=== PATIENT | female | born 1980 | race Caucasian/White ===

== ENCOUNTER 2019-05-18 15:26 | Inpatient (IN) | payer MEDICAID ==
[~2019-05-18] VITALS: Ht 154.9 cm; Wt 85.7 kg
[2019-05-18 15:46] VITALS: BP 121/73; PULSE 92; RESP 20
[2019-05-18 15:50] VITALS: Ht 154.9 cm; Wt 85.7 kg
[2019-05-18] MEDS ORDERED: LACTATED RINGER'S 1,000 ML IV PRN (15:51)
[2019-05-18] MEDS ORDERED: PREN1TAB13 PO (15:51)
[2019-05-18] MEDS ORDERED: FER325 PO (15:52)
[2019-05-18] MEDS ORDERED: CALC-143 PO (15:52)
[2019-05-18] MEDS ORDERED: OXYCODONE/ASPIRIN (4.88/325) TAB PO PRN (16:00)
[2019-05-18] MEDS ORDERED: MISOPROSTOL 200 MCG TAB PR PRN (16:00)
[2019-05-18] MEDS ORDERED: METHYLERGONOVINE 0.2 MG INJ IM PRN (16:00)
[2019-05-18] MEDS ORDERED: CARBOPROST 250 MCG INJ IM PRN (16:00)
[2019-05-18] MEDS ORDERED: LIDOCAINE 1% (MPF) 30 ML INJ INJ PRN (16:00)
[2019-05-18] MEDS ORDERED: BUTORPHANOL 2 MG INJ IV PRN (16:00)
[2019-05-18] MEDS ORDERED: OXYTOCIN 30 UNITS/LR 500 ML IV PRN (16:00)
[2019-05-18] MEDS ORDERED: OXYTOCIN 30 UNITS/LR 500 ML IV SCH ×3 (16:00→17:30)
[2019-05-18] MEDS ORDERED: IBUPROFEN 600 MG TAB PO PRN (16:00)
[2019-05-18] MEDS: LACTATED RINGER'S 1,000 ML IV SCH ×2 (16:40→20:12)
[2019-05-18] MEDS: ACCU-CHEK XX SCH (21:35)
--- NOTE | 2019-05-18 21:35 | PREAC ---
Date/Time of Note Date/Time of Note DATE: 05/18/19 TIME: 21:35 Anesthesia Eval and Record Evaluation Time Pre-Procedure Interview DATE: 05/18/19 TIME: 21:35 Age 39 Sex female NPO: 8 hrs Preoperative diagnosis labor pain Planned procedure epidural Past Medical History Past Medical History: Includes : Gestational age: (38.6), Gestational diabetes Surgery & Anesthesia Issues No known issue Meds Anticoagulation: No Beta Ofe within 24 hr: No Reason Beta Ofe not given: Pt. not on B-Ofe Reported Medications Calcium Citrate/Vitamin D (Citracal-Vitamin D 200 MG-250) 1 Each Tablet, 1 EACH PO DAILY, TAB 05/18/19 Ferrous Sulfate* (Ferrous Sulfate*) 325 Mg Tabec, 325 MG PO DAILY, TAB 05/18/19 Pnv95/Ferrous Fumarate/FA ( Vitamins Tablet) 1 Each Tablet, 1 EACH PO D AILY, TAB 05/18/19 Current Medications Lactated Ringer's 1,000 ml @ 125 mls/hr Q8H IV Last administered on 05/18/19at 20:12; Admin Dose 125 MLS/HR; Start 05/18/19 at 15:51 Butorphanol Tartrate (Stadol) 2 mg Q2H PRN IV .PAIN SCALE 6-10; Start 05/18/19 at 16:00 Lidocaine (Xylocaine 1% (Mpf)) 30 ml ONCE PRN INJ .EPISIOTOMY; Start 05/18/19 at 16:00 Oxytocin/Lactated Ringer's 500 ml @ 500 mls/hr ONCE POST IV ; Start 05/18/19 at 16:00 Oxytocin/Lactated Ringer's 500 ml @ 125 mls/hr POST IV ; Start 05/18/19 at 16:00 Ibuprofen (Motrin) 600 mg ONCE PRN PO .PAIN 1-5; Start 05/18/19 at 16:00 Oxycodone/Aspirin (Percodan) 2 tab ONCE PRN PO .PAIN 6-10; Start 05/18/19 at 16:00 Lactated Ringer's 1,000 ml @ 2,000 mls/hr Q30M PRN IV .ANESTHESIA; Start 05/18/19 at 15:51 Oxytocin/Lactated Ringer's 500 ml @ 0 mls/hr ONCE PRN IV .VAGINAL BLEEDING; Start 05/18/19 at 16:00 Methylergonovine Maleate (Methergine) 0.2 mg ONCE PRN IM .VAGINAL BLEEDING; Start 05/18/19 at 16:00 Carboprost Tromethamine (Hemabate) 250 mcg ONCE PRN IM .VAGINAL BLEEDING; Start 05/18/19 at 16:00 Misoprostol (Cytotec) 1,000 mcg ONCE PRN AL .VAGINAL BLEEDING; Start 05/18/19 at 16:00 Oxytocin/Lactated Ringer's 500 ml @ 0 mls/hr FOR INDUCTION IV Last administered on 05/18/19at 20:19; Admin Dose 1 MLS/HR; Start 05/18/19 at 17:30 Diagnostic Test (Pha) (Accu-Chek) 1 ea Q4 XX ; Start 05/18/19 at 21:00 Meds reviewed: Yes Allergies Coded Allergies: No Known Allergy (Unverified , 05/18/19) Allergies Reviewed: Yes Labs/Studies Labs Reviewed: Reviewed by anesthesiologist Result Diagram: 05/18/19 1630 05/18/19 1630 Laboratory Tests 05/18/19 16:30 Blood Bank Test 05/18/19 16:30 Antibody Screen NEGATIVE Blood Type A POSITIVE Rh Immune Globulin Candidate NO test: Positive Studies: ECG (n/a), CXR (n/a) Pre-procedure Exam Last vitals Vital Signs Date Temp Pulse Resp B/P (MAP) Pulse Ox O2 O2 Flow FiO2 Time Delivery Rate 05/18/19 97.8 92 20 121/73 Room Air 15:46 (89) Airway: Adequate mouth opening Mallampati: Mallampati I Teeth: Normal Lung: Normal Heart: Normal ASA Physical Status ASA physical status: 2 Emergency: None Planned Anesthetic Neuraxial: Epidural Pre-operative Attestations Prior to commencing anesthesia and surgery, the patient was re-evaluated, there was verification of: *The patient's identity *The results of appropriate recent lab work and preoperative vital signs *The above evaluation not changing prior to induction *Anesthetic plan, risk benefits, alternative and complications discussed with patient/family; questions answered; patient/family understands, accepts and wishes to proceed. JENNIFER TATUM MD May 18, 2019 21:35
[2019-05-18] MEDS ORDERED: NALOXONE (0.4 MG/ML) INJ IV PRN (22:00)
[2019-05-18] MEDS ORDERED: ONDANSETRON 4 MG INJ IV PRN (22:00)
[2019-05-18] MEDS ORDERED: FENTAnyl 2MCG/ML-ROPIV 0.2% 100 ML BAG EPI SCH (22:00)
[2019-05-18] MEDS ORDERED: DIPHENHYDRAMINE 50 MG INJ IV PRN (22:00)
[2019-05-19] MEDS: ACCU-CHEK XX SCH ×2 (01:00→05:00)
[2019-05-19] MEDS: LACTATED RINGER'S 1,000 ML IV SCH (03:32)
[2019-05-19] MEDS ORDERED: LIDOCAINE 2% (SDV) 5 ML INJ ONE (04:02)
--- NOTE | 2019-05-19 04:44 | HP ---
Date/Time of Note Date/Time of Note DATE: 05/19/19 TIME: 04:41 OB - History Hx of Present Free Text/Dictation 39-year-old 6 para 3 at 39 weeks of gestation with estimated date of delivery May 26, 2019 Patient presents in active labor with regular contractions She reports positive movement, denies vaginal bleeding or leaking fluid GBS status is negative Estimated Due Date: May 26, 2019 : 6 Para: 3 Care: Good Care Past Family/Social History * Past Medical, Surgical, Family and Obstetric Histories reviewed from chart. OB Admission Exam Vital Signs Vital Signs Vital Signs Date Temp Pulse Resp B/P (MAP) Pulse Ox O2 O2 Flow FiO2 Time Delivery Rate 05/18/19 97.8 92 20 121/73 Room Air 15:46 (89) Physical Exam HEENT: WNL Heart: Rhythm Normal Lungs: Clear, Equal Abdomen: WNL Extremities: Normal Reflexes: Normal Cervical Dilatation: 3cm Effacement: 75% Station: -1 Membranes: Intact Heart Rate: 140's Accelerations: Accelerations Present Decelerations: No Decelerations Varibility: Moderate Contractions on Admission: < 5 Minutes Apart Intensity: Moderate Last 72 hourBlood Glucose Bedside Glucose - 72 Hours Test 05/18/19 21:11 05/19/19 01:08 Bedside Glucose 88 mg/dL (70-220) 92 mg/dL (70-220) Last 72 hours Lab Results CBC & BMP 05/18/19 16:30 PROCEDURE: US OB CLINICAL INDICATION: . Induction of labor. TECHNIQUE: Multiple transabdominal sonographic images of the pelvis and gravid uterus were obtained. The images were reviewed on a PACS workstation. COMPARISON: No prior studies are available for comparison. FINDINGS: Cervix: Not well visualized. Gestation: Single intrauterine gestation. Cardiac activity: 134 bpm. Presentation: Cephalic Placenta: Location: Anterior fundal Appearance: No previa or abruption. Amniotic Fluid: Not evaluated Measurements: BPD = 9.36 cm, 38 weeks 1 day HC = 33.28 cm, 38 weeks 0 days AC = 34.44 cm, 38 weeks 2 days FL = 7.45 cm, 38 weeks 1 day Gestational Age: AUA estimated gestational age: 38 weeks 1 day LMP estimated gestational age: 38 weeks 6 days AUA estimated date of delivery: 05/31/2019 EFW = 3430 g, 52% based on LMP. Structures: Not evaluated. IMPRESSION: 1. Single live intrauterine gestation of 38 weeks 1 day by ultrasound criteria. RPTAT: DD .Noel Rogers MD, Date Time Electronically viewed and signed by .Nole Rogers MD, MD on 05/18/2019 16:57 .R/ CC: MAMADOU PULIDO MD [phone] OB Assessment/Plan Reason for admission: active labor Plan: Expectant Management Other plan: Admit to labor and delivery Pain meds as needed Copies To: CC: MAMADOU PULIDO MD ; JACQUES OBANDO MD May 19, 2019 04:44
[2019-05-19] MEDS ORDERED: OXYTOCIN 30 UNITS/LR 500 ML IV SCH (04:46)
[2019-05-19] MEDS ORDERED: LACTATED RINGER'S 1,000 ML IV* SCH (04:46)
--- NOTE | 2019-05-19 04:46 | LDN ---
Date/Time of Note Date/Time of Note DATE: 05/19/19 TIME: 04:44 Delivery Summary Weeks of Gestation Term gestation Placenta Delivered: Spontaneously Meconium: none Episiotomy: No Anesthesia type: Epidural Estimated blood loss: 200 Sponge & Needle done & correct: Yes All needle counts correct: Yes Any foreign bodies felt in the: No Infant Delivery Information Sex Sex: male Apgars 1 Minute: 8 5 Minute: 9 Suctioning Nose & mouth suctioned at cornelius: Yes Delee suction performed: No Umbilical Cord Umbilical cord with: 3 Vessels Cord presentations: no nuchal cord Cord Blood was obtained: Yes Mother & Baby Disposition Disposition Baby's weight 6 pounds 7 ounces/ 2920 g Mom & Baby to Maternity; Good: Yes Baby to NICU: No Copies To: CC: MAMADOU PULIDO MD ; JACQUES OBANDO MD May 19, 2019 04:46
[2019-05-19] MEDS ORDERED: DIBUCAINE 1% 30 GM OINT TOP PRN (05:00)
[2019-05-19] MEDS ORDERED: BENZOCAINE 20% 56 ML SPRAY TOP PRN (05:00)
[2019-05-19] MEDS ORDERED: ACETAMINOPHEN 325 MG TAB PO PRN ×2 (05:00)
[2019-05-19] MEDS ORDERED: MISOPROSTOL 200 MCG TAB PR PRN (05:00)
[2019-05-19] MEDS ORDERED: SENNA/DOCUSATE NA (8.6MG/50MG) TAB PO PRN (05:00)
[2019-05-19] MEDS ORDERED: ONDANSETRON 4 MG INJ IV PRN (05:00)
[2019-05-19] MEDS ORDERED: LANOLIN HPA 1 PKT TOP PRN (05:00)
[2019-05-19] MEDS ORDERED: WITCH HAZEL/GLYCERIN PAD PR PRN (05:00)
[2019-05-19] MEDS ORDERED: OXYTOCIN 30 UNITS/LR 500 ML IV PRN (05:00)
[2019-05-19] MEDS ORDERED: METHYLERGONOVINE 0.2 MG INJ IM PRN (05:00)
[2019-05-19] MEDS ORDERED: CARBOPROST 250 MCG INJ IM PRN (05:00)
[2019-05-19] MEDS ORDERED: MAGNESIUM HYDROXIDE 30ML CUP PO PRN (05:00)
[2019-05-19 05:50] VITALS: BP 127/64; PULSE 77; RESP 20
[2019-05-19 08:00] VITALS: BP 129/61; PULSE 91; RESP 18
--- NOTE | 2019-05-19 09:27 | PAC ---
Date/Time of Note Date/Time of Note DATE: 05/19/19 TIME: 09:26 Post-Anesthesia Notes Post-Anesthesia Note Last documented vital signs Vital Signs Date Temp Pulse Resp B/P (MAP) Pulse Ox O2 O2 Flow FiO2 Time Delivery Rate 05/19/19 98.7 77 20 127/64 100 Room Air 05:50 (85) Activity: WNL Respiratory function: WNL Cardiovascular function: WNL Mental status: Baseline Pain reasonably controlled: Yes Hydration appropriate: Yes Nausea/Vomiting absent: No JENNIFER TATUM MD May 19, 2019 09:27
--- NOTE | 2019-05-19 09:38 | PAC ---
Date/Time of Note Date/Time of Note DATE: 05/19/19 TIME: 09:37 Post-Anesthesia Notes Post-Anesthesia Note Last documented vital signs Vital Signs Date Temp Pulse Resp B/P (MAP) Pulse Ox O2 O2 Flow FiO2 Time Delivery Rate 05/19/19 98.7 77 20 127/64 98 Room Air 05:50 (85) Activity: WNL Respiratory function: WNL Cardiovascular function: WNL Mental status: Baseline Pain reasonably controlled: Yes Hydration appropriate: Yes Nausea/Vomiting absent: No JENNIFER TATUM MD May 19, 2019 09:38
[2019-05-19 12:00] VITALS: BP 121/74; PULSE 79; RESP 18
[2019-05-19 17:58] VITALS: BP 114/62; PULSE 99; RESP 18
[2019-05-19 19:30] VITALS: BP 123/58; PULSE 98; RESP 19
[2019-05-19] MEDS: IBUPROFEN 600 MG TAB PO PRN (23:19)
[2019-05-20 00:34] VITALS: BP 119/68; PULSE 82; RESP 18
[2019-05-20 04:22] VITALS: BP 111/59; PULSE 84; RESP 19
[2019-05-20] MEDS: IBUPROFEN 600 MG TAB PO PRN (06:21)
[2019-05-20 09:00] VITALS: BP 119/68; PULSE 72; RESP 18
--- NOTE | 2019-05-20 09:29 | QN ---
Documentation Comment day #1 Status post Patient stable and afebrile Vital signs stable VS - Last 72 Hours, by Label Date Temp Pulse Resp B/P (MAP) Pulse Ox O2 O2 Flow FiO2 Time Delivery Rate 05/20/19 98.0 84 19 111/59 96 Room Air 04:22 (76) 05/20/19 98.3 82 18 119/68 97 Room Air 00:34 (85) 05/19/19 98.9 98 19 123/58 97 Room Air 19:30 (79) 05/19/19 97.8 99 18 114/62 17:58 (79) 05/19/19 98.1 79 18 121/74 Room Air 12:00 (90) 05/19/19 98.2 91 18 129/61 Room Air 08:00 (83) 05/19/19 98.7 77 20 127/64 Room Air 05:50 (85) 05/18/19 97.8 92 20 121/73 Room Air 15:46 (89) Hematology - 72 Hrs Test 05/18/19 16:30 05/20/19 07:45 Hematocrit 34.5 % (37.0-47.0) L 28.9 % (37.0-47.0) L Hemoglobin 11.9 g/dl (12.0-16.0) L 10.0 g/dl (12.0-16.0) L Mean Corpuscular 31.9 pg (29.0-33.0) 32.2 pg (29.0-33.0) Hemoglobin Mean Corpuscular 34.5 g/dl (32.0-37.0) 34.6 g/dl (32.0-37.0) Hemoglobin Concent Mean Corpuscular Volume 92.5 fl (82.0-101.0) 92.9 fl (82.0-101.0) Mean Platelet Volume 11.1 fl (7.4-10.4) H 11.2 fl (7.4-10.4) H Platelet Count 203 10^3/UL (140-415) 162 10^3/UL (140-415) # Red Blood Count 3.73 10^6/ul (4.20-5.40) 3.11 10^6/ul (4.20-5.40) L L Red Cell Distribution 13.1 % (11.5-14.5) 13.2 % (11.5-14.5) Width White Blood Count 6.5 10^3/ul (4.8-10.8) 9.2 10^3/ul (4.8-10.8) # Chemistry Test 05/18/19 16:30 05/18/19 21:11 05/19/19 01:08 05/19/19 05:59 Glucose Level 83 mg/dl (70-220) Bedside 88 92 102 Glucose mg/dL (70-220) mg/dL (70-220) mg/dL (70-220) Abdomen soft, fundus firm Perineum intact Extremities nontender Assessment and plan Patient stable and doing well Continue with routine care JACQUES OBANDO MD May 20, 2019 09:29
[2019-05-20 16:10] VITALS: BP 105/71; PULSE 84; RESP 16
[2019-05-20 20:00] VITALS: BP 119/70; PULSE 87; RESP 18
[2019-05-21 04:00] VITALS: BP 130/72; PULSE 80; RESP 20
[2019-05-21 08:30] VITALS: BP 116/63; PULSE 73; RESP 18
--- NOTE | 2019-05-21 12:31 | DS ---
Date/Time of Note Date/Time of Note DATE: 05/21/19 TIME: 12:31 Obstetrical Discharge Record Final Diagnosis Final Diagnosis: Term delivered Vaginal Delivery Obstetrical Delivery: Spontaneous Complications Augmentation: No Induction: No Rupture of Membranes: No Condition on Discharge Physical Assessment Voiding: Yes Bowel Movement: Yes Breast: Soft, non-tender, Filling Fundus: Firm Abdomen and Incision: soft, not tender Calf Tenderness: No Patient Condition: Good MAMADOU PULIDO MD May 21, 2019 12:31
--- NOTE | 2019-05-22 16:55 | DELSUM ---
Delivery Summary A-C Datetime Report Generated by CPN: 05/22/2019 16:54 DELIVERY PERSONNEL Bar Captain: JOSE ENRIQUE, HEBERT MATERNAL INFORMATION Delivery Anesthesia: Epidural Medications in Delivery: LR W/30 UNITS PITOCIN Delivery QBL (ml): 200 Placenta Cultured: No Maternal Complications: Other Other Maternal Complications: GDM DIET CONTROLLED LABOR SUMMARY EDC: 05/26/2019 00:00 No. Babies in Womb: 1 Attempted: No Labor Anesthesia: Epidural LABOR INFORMATION Reason for Induction: Other Reason for Induction- Other: IUGR, OLIGOHYDRAMNIOS Onset of Labor: 05/18/2019 16:40 Complete Dilatation: 05/19/2019 04:00 Oxytocin: Induction Group B Beta Strep: Negative Antibiotics # of Doses: 0 Steroids Given: None Reason Steroids Not Administered: Not Applicable MEMBRANES Membranes Rupture Method: Artificial Rupture of Membranes: 05/19/2019 04:22 Length of Rupture (hr): 0.00 Amniotic Fluid Color: Clear Amniotic Fluid Amount: Moderate Amniotic Fluid Odor: None STAGES OF LABOR Stage 1 hr: 11 Stage 1 min: 20 Stage 2 hr: 0 Stage 2 min: 22 Stage 3 hr: 0 Stage 3 min: 0 Total Time in Labor hr: 11 Total Time in Labor min: 42 VAGINAL DELIVERY Episiotomy: None Laceration Extension: First Degree Laceration Type: Perineal Laceration Repair: Yes Initial Vag Sponge Count: 10 Final Vag Sponge Count: 10 Initial Vag Sharps Count: 1 Final Vag Sharps Count: 2 Sponge Count Correct: Yes; Vaginal Sweep Performed Sharps Count Correct: Yes BABY A INFORMATION Delivery Date/Time: 05/19/2019 04:22 Method of Delivery: Vaginal Born in Route : No : N/A Forceps: N/A Vacuum Extraction: N/A Shoulder Dystocia : N/A SHOULDER DYSTOCIA BABY A Delivery Date/Time: 05/19/2019 04:22 PRESENTATION/POSITION BABY A Presentation: Cephalic Cephalic Presentation: Vertex Vertex Position: Left Occipital Posterior Breech Presentation: N/A PLACENTA INFORMATION BABY A Placenta Delivery Time : 05/19/2019 04:22 Placenta Method of Delivery: Spontaneous Placenta Status: Delivered SCORES BABY A Heart Rate 1 min: >100 bpm Resp Effort 1 min: Good Cry Reflex Irritability 1 min: Cough/Sneeze/Pulls Away Muscle Tone 1 min: Active Motion Color 1 min: Blue/Pale Resuscitation Effort 1 min: Tactile Stimulation SCORE 1 MIN: 8 Heart Rate 5 min: >100 bpm Resp Effort 5 min: Good Cry Reflex Irritability 5 min: Cough/Sneeze/Pulls Away Muscle Tone 5 min: Active Motion Color 5 min: Body [place], Extremit Blue Resuscitation Effort 5 min: Tactile Stimulation SCORE 5 MIN: 9 INFORMATION BABY A Gestational Age at Delivery: 39.0 Gestational Status: Full Term- 39- 40.6 Weeks Infant Outcome : Liveborn, with signs of life Condition : Stable Sex: Male IDENTIFICATION/MEDS BABY A ID Band Number: [id number] ID Band Location: Right Leg; Left Arm Sensor Applied: Yes Sensor Number: [id number] Sensor Location : Cord Clamp Vitamin K Given : Not Given Erythromycin Given: Not Given WEIGHT/LENGTH BABY A Infant Birthweight (gm): 2920 Weight (lb): 6 Weight (oz): 7 Infant Length (in): 18.50 Length (cm): 46.99 CORD INFORMATION BABY A No. Cord Vessels: 3 Nuchal Cord : N/A Cord Blood Taken: Yes Suction: Mouth; Nose ASSESSMENT BABY A Infant Complications: Multiple Variable Decels Physical Findings at Delivery: Within Normal Limits Respirations: Appears Normal Cat Swamper/ALS Called : Yes Care By: RT/RN Transferred To: Remains with Mother
== END 2019-05-21 16:10 | disposition home or self-care (01) | DRG 807 ==
LOC: L-D 15:26 → PP1 05-19 05:54
PROVIDERS: ADMIT Specialist; ATTEND Specialist
PROC: 10E0XZZ Delivery of Products of Conception, External Approach (ICD-10-PCS; principal; 2019-05-19)
PROC: 0HQ9XZZ Repair Perineum Skin, External Approach (ICD-10-PCS; 2019-05-19)
DX: O70.0 First degree perineal laceration during delivery (principal); Z37.0 Single live birth; Z3A.39 39 weeks gestation of pregnancy
CPT/HCPCS: 62322; 76815; 82947; 82962; 85025; 85610; 85730; 86592; 86850; 86900; 86901; 87340; 99464; J2590; J3010; J7120